=== PATIENT | male | born 1995 | race Native Hawaiian/Other Pacific Islander ===

== ENCOUNTER 2021-11-03 16:38 | Outpatient (CLI) | payer OTHER | END 2021-11-03 19:14 | disposition home or self-care (01) | LOC: RAD 16:38 | PROVIDERS: ATTEND Family Medicine | DX: S67.91XA Crushing injury of unspecified part(s) of right wrist, hand and fingers, initial encounter (principal); Y92.9 Unspecified place or not applicable ==

== ENCOUNTER → 2022-10-27 | Outpatient (CLI) | payer OTHER | LOC: US 12:55 | PROVIDERS: ATTEND Registered Nurse | DX: R22.2 Localized swelling, mass and lump, trunk (principal) ==